=== PATIENT | female | born 1970 | race Caucasian/White ===

== ENCOUNTER 2021-05-21 08:43 | Outpatient (CLI) | payer OTHER, SELFPAY ==
--- NOTE | ~2021-05-21 | XR_ITS ---
XR wrist RT min 3V DATE: 05/21/2021 08:58 INDICATION: Fall 4 days ago. Right wrist pain with gripping TECHNIQUE: 4 views COMPARISON: None FINDINGS: No fracture or dislocation, periosteal reaction or bone destruction. Joint spaces are prese rved. IMPRESSION: Negative Reviewed, dictated and finalized at location A. [employer] IMPRESSION: Negative
== END 2021-05-21 08:44 | disposition home or self-care (01) ==
PROVIDERS: PCP Internal Medicine
DX: M25.531 Pain in right wrist (principal)
CPT/HCPCS: 73110

== ENCOUNTER 2021-06-05 16:14 | Outpatient (CLI) | payer OTHER, SELFPAY ==
--- NOTE | ~2021-06-05 | XR_ITS ---
EXAMINATION: XR foot RT min 3V DATE: 06/05/2021 16:25 INDICATION: Infection at the right fifth digit with swelling and pain rating of the right leg. TECHNIQUE: Dorsoplantar, two oblique and lateral views of the right foot were obtained. COMPARISON: None. FINDINGS: Alignment is normal. No fracture. Mild osteoarthritis at the first metatarsophalangeal and the third and fourth tarsal metatarsal joints. Small plantar calcaneal spur. No cortical erosions or periosteal reaction to suggest osteomyelitis. No ankle joint effusion. No soft tissue gas or radiopaque foreign bodies. Soft tissue swelling about the lateral malleolus. IMPRESSION: 1. No evident soft tissue gas or osteomyelitis. Reviewed, dictated and finalized at location A. [employer]
== END 2021-06-05 16:15 | disposition home or self-care (01) ==
LOC: ANHBWCIMG 16:15
PROVIDERS: PCP Internal Medicine; Visit Provider Internal Medicine
DX: M79.89 Other specified soft tissue disorders (principal); B99.9 Unspecified infectious disease; M19.071 Primary osteoarthritis, right ankle and foot
CPT/HCPCS: 73630

== ENCOUNTER → 2021-10-18 13:05 | Outpatient (CLI) | payer OTHER, SELFPAY ==
--- NOTE | ~2021-10-18 | XR_ITS ---
XR cervical spine 4-5V DATE: 10/18/2021 13:45 INDICATION: Neck pain TECHNIQUE: Standing AP and lateral bilateral oblique views, open-mouth projection. COMPARISON: 02/16/2009 CT cervical spine FINDINGS: There is mild reversal of cervical curvature. C1 and C2 are normally aligned and the odontoid process is intact. No fracture or dislocation or lock ed facet or prevertebral soft tissue swelling. There is mild loss of height at C5-6 interspace. There is mild degenerative disc disease including anterior and posterior spurring at C6-7 There is minimal anterolisthesis at C7-T1. These findings are relatively unchanged since 02/16/2009.. No significant bony encroachment upon the neural foramina is detected. IMPRESSION: Mild reversal of cervical curvature Moderate moderate degenerative disc disease in the lower cervical spine Minimal anterolisthesis at C7-T1 Reviewed, dictated and finalized at location A.
== END ==
DX: M53.82 Other specified dorsopathies, cervical region (principal); M50.30 Other cervical disc degeneration, unspecified cervical region; M43.12 Spondylolisthesis, cervical region
CPT/HCPCS: 72050

== ENCOUNTER 2024-09-27 13:38 | Outpatient (CLI) | payer BC, SELFPAY ==
--- NOTE | ~2024-09-27 | XR_ITS ---
XR knee RT 3V Ordering provider: Kimber Corral, [place] History: . ACUTE PAIN OF RIGHT KNEE . Comparison: None. FINDINGS: BONES: No acute fracture or dislocation. JOINT SPACES: Narrowing of the medial compartment with marginal osteophytes. SOFT TISSUES: Normal. IMPRESSION: No acute osseous abnormality right knee. Moderate osteoarthritic changes. Reviewed, dictated and finalized at location A.
== END 2024-09-27 13:39 | disposition home or self-care (01) ==
PROVIDERS: PCP Physician Assistant; Visit Provider Physician Assistant
DX: M17.11 Unilateral primary osteoarthritis, right knee (principal)
CPT/HCPCS: 73562